=== PATIENT | male | born 1990 ===

== ENCOUNTER 2018-08-01 09:12 | Inpatient (IN) | payer BC ==
[2018-08-01] MEDS ORDERED: Morphine 4 MG/ML VIAL ONE (09:47)
[2018-08-01] MEDS ORDERED: Morphine 2 MG/ML SYRINGE ONE (09:47)
[2018-08-01] MEDS ORDERED: Ondansetron PF 4 MG/2 ML Vial ONE ×2 (09:50→16:12)
[2018-08-01] MEDS ORDERED: Levofloxacin 500 mg/D5W 100 ml Premix Bag ONE (10:17)
[2018-08-01] MEDS ORDERED: Bupivacaine HCl 0.5%/Epinephrine 1:200,000/PF 30 ml Vial ONE (11:30)
[2018-08-01] MEDS ORDERED: Fentanyl 100 MCG/2 ML VIAL ONE (11:36)
[2018-08-01] MEDS ORDERED: HYDROcodone/Acetaminophen 10/325 mg Tablet PO PRN ×2 (12:41)
[2018-08-01] MEDS ORDERED: Ondansetron PF 4 MG/2 ML Vial IVP PRN (12:41)
[2018-08-01] MEDS ORDERED: Morphine 4 MG/ML VIAL SLOW IVP PRN ×2 (12:41)
[2018-08-01] MEDS ORDERED: hydrALAZINE 20 MG/ML VIAL SLOW IVP PRN (12:41)
[2018-08-01] MEDS ORDERED: Dextrose 50% Abboject 50 ML SYRINGE SLOW IVP PRN (12:41)
[2018-08-01] MEDS ORDERED: Promethazine HCl 25 MG/ML VIAL IM PRN ×2 (12:41→14:03)
[2018-08-01] MEDS ORDERED: Dextrose 5% in Water 1,000 ML IV PRN (12:41)
--- NOTE | 2018-08-01 13:18 | OP ---
DATE OF PROCEDURE: 08/01/2018 PREOPERATIVE DIAGNOSIS: Acute appendicitis. PROCEDURES PERFORMED: Laparoscopic appendectomy, drainage of periappendiceal abscess. INDICATIONS: A 28-year-old male with two-day history of periumbilical pain, migrated to right lower quadrant about 24 hours ago, associated with nausea, vomiting, and fever. CT showed appendicitis. FINDINGS: Acute perforated appendicitis with periappendiceal abscess. DESCRIPTION OF PROCEDURE: After informed consent was obtained, the patient was taken to the operating room, given general endotracheal anesthesia, placed in the supine position. Abdomen was prepped and draped in usual fashion. Local anesthesia was infiltrated subcutaneously and deep. A subumbilical incision was performed. Subcu was divided sharply. The fascia was grasped with two stay sutures of 0 Vicryl placed in each side of midline. Midline incised. Digital palpation revealed no local adhesions. A blunt 12 mm trocar was inserted. Pneumoperitoneum was created to a pressure of 15 mmHg. Under direct vision, two 5 mm ports were placed; one suprapubic and one right lateral abdomen. The cecum was down in the pelvis and as retracted the cecum, purulent fluid was visualized. This was aspirated for culture and removed. Then, the necrotic appendix was found. The mesoappendix divided utilizing the LigaSure. The base of appendix was divided with the linear 45 mm white load stapler. The appendix placed in endosac, removed from the abdomen in the endosac. The abdomen was thoroughly irrigated with fluid, fluid removed. A drain was placed and brought out through the suprapubic incision, placed down in the pelvis and along the right gutter. Hemostasis assured. The trocars and retractors were removed. The fascia was closed with interrupted 0 Vicryl suture. The skin was closed with interrupted 4-0 Rapide. Dermabond applied. The patient tolerated the procedure well, transferred to Recovery in good condition. Sponge and needle count verified correct x2. Job ID: [id number]
[2018-08-01] MEDS ORDERED: D5 1/2 NS w/20 mEq KCL 1,000 ML ONE (13:43)
[2018-08-01] MEDS ORDERED: Ondansetron HCl/PF 4 MG/2 ML Vial IVP PRN (14:03)
[2018-08-01] MEDS ORDERED: Promethazine HCl 25 MG/ML VIAL SLOW IVP PRN (14:03)
[2018-08-01] MEDS: metroNIDAZOLE 500 MG in Premix Bag 1 BAG IVPB SCH ×2 (15:37→21:31)
[2018-08-01] MEDS: D5 1/2 NS w/20 mEq KCL 1,000 ML IV SCH (16:06)
[2018-08-01] MEDS ORDERED: Rocuronium Bromide 10 MG/ML (10ML VIAL) ONE (16:12)
[2018-08-01] MEDS ORDERED: Ketorolac Tromethamine 30 MG/ML VIAL ONE (16:12)
[2018-08-01] MEDS ORDERED: Lidocaine 1% PF 5 ML VIAL ONE (16:12)
[2018-08-01] MEDS ORDERED: Glycopyrrolate 0.2 MG/ML 5 ML SYRINGE ONE (16:12)
[2018-08-01] MEDS ORDERED: PHENYLEPHRINE-NS 100 MCG/ML 10 ML SYRINGE ONE (16:12)
[2018-08-01] MEDS ORDERED: Dexamethasone 20 MG/5 ML VIAL ONE (16:12)
[2018-08-01] MEDS ORDERED: PROPOFOL 200 MG/20 ML VIAL ONE (16:12)
[2018-08-01] MEDS ORDERED: Metoclopramide HCl 10 MG/2 ML VIAL ONE (16:12)
[2018-08-01] MEDS: Ketorolac Tromethamine 30 MG/ML VIAL IVP SCH (18:19)
[2018-08-01] MEDS: Famotidine 20 MG TAB PO SCH (21:30)
[2018-08-01] MEDS: Famotidine/PF 20 mg/2ml Vial SLOW IVP SCH (21:35)
[2018-08-02] MEDS: Ketorolac Tromethamine 30 MG/ML VIAL IVP SCH ×3 (00:51→11:18)
[2018-08-02] MEDS: D5 1/2 NS w/20 mEq KCL 1,000 ML IV SCH ×2 (00:56→07:22)
[2018-08-02 05:14] LABS: #Lymphocytes 0.7 thou/uL (1.20-3.40); #Monocytes 0.7 thou/uL (0.11-0.59); #Neutrophils 14.4 thou/uL (1.40-6.50); %Basophils 0.1 % (0.0-1.0); %Eosinophils 0.2 % (0.0-10.0); %Lymphocytes 4.1 % (21.0-51.0); %Monocytes 4.2 % (0.0-10.0); %Neutrophils 91.4 % (42.0-75.0); Hemoglobin 13.4 g/dL (14.0-18.0); Mean Corpuscular HGB CONC 33.1 g/dL (32.0-36.0); Mean Corpuscular Hemoglobin 31.3 pg (27.0-31.0); Mean Corpuscular Volume 94.6 fL (78.0-98.0); Mean Platelet Volume 11.6 fL (7.4-10.4); Platelet Count 95 thou/uL (130-400); RBC Distribution Width 11.8 % (11.5-14.5); White Blood Cell (WBC) Count 15.7 thou/uL (4.8-10.8)
[2018-08-02 05:29] LABS: Anion Gap 10 mmol/L (10-20); BUN (Urea Nitrogen) 9 mg/dL (8.9-20.6); Calc. Creatinine Clearance 91 mL/min (70-130); Calcium 9.7 mg/dL (7.8-10.44); Carbon Dioxide 29 mmol/L (22-29); Chloride 102 mmol/L (98-107); Estimated GFR-MDRD 85; Glucose 183 mg/dL (70-105); Potassium 4.1 mmol/L (3.5-5.1); Sodium 137 mmol/L (136-145)
[2018-08-02] MEDS: metroNIDAZOLE 500 MG in Premix Bag 1 BAG IVPB SCH ×2 (06:05→15:46)
[2018-08-02] MEDS ORDERED: Enoxaparin Sodium 40 MG/0.4 ML SYRINGE SC SCH (09:00)
[2018-08-02] MEDS: Famotidine/PF 20 mg/2ml Vial SLOW IVP SCH (09:03)
[2018-08-02] MEDS: Famotidine 20 MG TAB PO SCH (09:05)
[2018-08-02] MEDS ORDERED: Levofloxacin 500 mg/D5W 100 ml Premix Bag IVPB SCH (11:00)
[2018-08-02 11:43] VITALS: BP 97/61; TEMP 97.6
[2018-08-02] MEDS ORDERED: Ibuprofen 600 MG TAB PO PRN (14:57)
[2018-08-02] MEDS ORDERED: Acetaminophen 500 MG TAB PO PRN (14:57)
--- NOTE | 2018-08-02 15:26 | DIS ---
DATE OF ADMISSION: 08/01/2018 DATE OF DISCHARGE: 08/02/2018 DISCHARGE DIAGNOSIS: Appendicitis with abscess. HISTORY: A 28-year-old male patient, presented to the emergency room for several-day history of abdominal pain, underwent laparoscopic appendectomy drain placed. Pathology pending. The patient tolerated his diet. He is sent home with doxycycline for 10 days. Follow up with Dr. Pepper in 5 to 7 days to evaluate for drain removal. He is instructed on BALJIT drain care, stripping it 2 to 3 times a day, and recording output. He is sent home on doxycycline twice a day, and for pain control, Tylenol, ibuprofen, and hydrocodone if necessary. Diet and activity as tolerated. on drain care. Job ID: [id number]
--- NOTE | 2018-08-02 15:53 | PRG ---
DATE OF SERVICE: 08/02/2018 SUBJECTIVE: Domitila is a 28-year-old male, seen by Dr. Pepper, seen in coverage for him. The patient is without complaints. He is tolerating regular diet. OBJECTIVE: VITAL SIGNS: He is afebrile, temperature 97.6, heart rate 79, blood pressure 97/61. LUNGS: Clear to auscultation. CARDIAC: Regular rate and rhythm without murmur or gallop. ABDOMEN: Soft and nontender. Drainage; BALJIT, purulent, 50 mL, 24 hours. LABORATORY DATA: None. ASSESSMENT AND PLAN: The patient is doing well. He will plan discharge home after teaching drain care. He will be sent home with Tylenol and Motrin p.r.n. pain, hydrocodone p.r.n. pain refractory to above, doxycycline twice a day for a week. Follow up with Dr. Pepper in approximately a week. Job ID: [id number]
[2018-08-02] MEDS ORDERED: Doxycycline 100 MG CAP PO SCH (21:00)
== END 2018-08-02 15:45 | disposition home or self-care (01) | DRG 340 ==
LOC: SDC 09:12 → SJJU 12:42
PROVIDERS: ADMIT Surgery; ATTEND Surgery
PROC: 0DTJ4ZZ Resection of Appendix, Percutaneous Endoscopic Approach (ICD-10-PCS; principal; 2018-08-01)
PROC: 0D9J4ZZ Drainage of Appendix, Percutaneous Endoscopic Approach (ICD-10-PCS; 2018-08-01)
DX: K35.33 Acute appendicitis with perforation, localized peritonitis, and gangrene, with abscess (principal)
CPT/HCPCS: 36415; 80048; 85025; 87070; 87077; 87205; 88304; J0670; J1650; J1885; J1956; J2270; J2405; J3010